=== PATIENT | female | born 1985 | race Caucasian/White ===

== ENCOUNTER → 2021-03-30 | Outpatient (CLI) | payer BC ==
[~2021-03-30] MED LIST: HYDROCODON-ACE1 EAC4 PO; IBU600 MG PO; PRENATAL VITAM1 EAC5 PO
== END ==
LOC: LAB 08:54
DX: O20.0 Threatened abortion (principal)
CPT/HCPCS: 36415; 84702

== ENCOUNTER → 2021-04-02 | Day surgery (SDC) | payer BC ==
[2021-04-02 07:58] LABS: HEMOGLOBIN 13.3 gm/dl (12.3-15.3); RED BLOOD COUNT 4.32 M/UL (4.00-5.10); WHITE BLOOD COUNT 5.5 K/UL (4.5-11.0)
== END | disposition home or self-care (01) ==
LOC: OR 06:53
PROVIDERS: Obstetrics & Gynecology
DX: O02.1 Missed abortion (principal); E78.5 Hyperlipidemia, unspecified; E55.9 Vitamin D deficiency, unspecified; Z90.49 Acquired absence of other specified parts of digestive tract
CPT/HCPCS: 36415; 81001; 85025; 86850; 86900; 86901; J1100; J1885; J2001; J2250; J2405; J2704; J2795; J3010; J7030; J7120